=== PATIENT | female | born 1965 | race American Indian/Alaskan Native ===

== ENCOUNTER 2018-08-28 14:13 | Emergency (ER) | payer OTHER ==
[2018-08-28 14:25] VITALS: BP 118/76; PULSE 70; TEMP 98.2; BMI 33.6
[2018-08-28] MEDS ORDERED: ACETAMINOPHEN 325 MG TABLET (FP) PO ONE (14:48)
--- NOTE | 2018-08-28 14:49 | PDOC ---
History of Present Illness - General Chief Complaint: Injury Stated Complaint: FALL DOWN STEPS INJURY TO LOWER LEGS ABRASIONS Time Seen by Provider: 08/28/18 14:19 History Source: Patient Exam Limitations: No Limitations - History of Present Illness Initial Comments: 08/28/18 14:44 53y F no significant pmhx presents s/o fall. Pt was ambulated barefoot down her front stairs and slipped on a bunch of wet magnolia leaves, with her L leg sliding down first with her R leg tralining. Pt endorses pain to her R leg and scraps to the R jimenez and L calf. Pt denies head injury, loc, neck pain, back pain, other extermity pain. pt was in her [facility] prior to falling without complaints of feeling lightheaded, cp, palpitations, n/v, abd pain, back pain, head ache, numbenss/tingling/weakness. After her fall, she endorses feeling brielf episodes of palpitations, lightheaded, blurry vision lasting for a minute or two before resolving. Pt endorses feeling occaional similar symptoms after falling that lasts for a few seconds. Denies any symptoms currently. Last tetanus during previous ED visit for a cut in 2016. Past History - Past Medical History Allergies/Adverse Reactions: Allergies Allergy/AdvReac Type Severity Reaction Status Date / Time codeine [Codeine] Allergy Intermediate Nausea Verified 08/28/18 14:16 Penicillins Allergy Intermediate Verified 08/28/18 14:16 Home Medications: Ambulatory Orders Omeprazole [Prilosec] 20 mg PO DAILY 12/05/14 COPD: No GI Disorders: Yes (ACID REFLUX) Kidney Stones: Yes - Surgical History Appendectomy: Yes Cholecystectomy: Yes - Immunization History Immunization Up to Date: No - Suicide/Smoking/Psychosocial Hx Smoking Status: No Smoking History: Never smoked Have you smoked in the past 12 months: No Number of Cigarettes Smoked Daily: 0 If you are a former smoker, when did you quit?: 30 YRS AGO Information on smoking cessation initiated: No Hx Alcohol Use: Yes (SOCIAL) Drug/Substance Use Hx: No Substance Use Type: None Review of Systems - Review of Systems Able to Perform ROS?: Yes Comments:: 08/28/18 15:04 Constitutional - no reported Fever, Chills, HEENT: no reported vision changes, sore throat Respiratory: no reported cough, sob, hemoptysis Cardiac: +palpitations, light headedness, no reported chest pain, leg swelling Abd/GI: no reported abd pain, nausea, vomiting : no reported dysuria, frequency, discharge Musculskelatal - RLE pain, no reported back pain, joint swelling skin - +abrasions, no reported bruising, erythema, rash neurological: no reported headache, numbness, focal weakness, tingling, ataxia , hematologic: no reported easy bruising, easy bleeding *Physical Exam - Vital Signs Last Vital Signs Temp Pulse Resp BP Pulse Ox 98.2 F 70 16 118/76 98 08/28/18 14:15 08/28/18 14:15 08/28/18 14:15 08/28/18 14:15 08/28/18 14:15 - Physical Exam Comments: 08/28/18 15:06 GENERAL: The patient is awake, alert, and fully oriented, Nontoxic - in no acute distress. HEAD: Normocephalic, atraumatic. EYES: extraocular movements intact, sclera anicteric, conjunctiva clear. ENT: Normal voice, Moist mucous membranes. NECK: Normal range of motion, supple, NO midline bony or soft tissue ttp to cervical/thoracic/lumbar spine LUNGS: Breath sounds equal, clear to auscultation bilaterally. No wheezes, no rhonchi, no rales. HEART: Regular rate and rhythm, normal S1 and S2 without murmur, rub or gallop. ABDOMEN: Soft, nontender, No guarding, no rebound. No CVA tenderness EXTREMITIES: contusion to the R anterior knee without significant focal bony ttp , normal ROM of R knee/R hip. abrasion noted to anterior R jimenez with mild ttp on anterior mid tibia, mild ttp to medial mallelous of R ankle. Normal ROM of L hip, ankle, knee. abrasion on posterior L calf. radial pulses symmetric b/l, sensation intact b/l. normal ROM of UE at shoulder/elbow/wrists without focal bony ttp or limitations of ROM. NEUROLOGICAL: No facial assymetry, Normal speech, moving all 4 ext spontaneously and symmetrically PSYCH: Normal mood, normal affect. SKIN: Warm, Dry, normal turgor, Heart Score/ECG Review - ECG Impressions Comment:: 08/28/18 15:41 Twelve-lead EKG was performed and reviewed by me. There is normal sinus rhythm Rate of [address] changs suggestive of acute ischemia Medical Decision Making - Medical Decision Making 08/28/18 15:09 53y F presents sp mechanical fall with multiple abrasions/contusions with mild ttp to RLE/ankle w/o head injury/syncope bacitracin to abrasions xray to r/o fx on R tibfib/ankle tylenol for pain tetanus updated 3 yrs ago 08/28/18 15:58 xrays neg for fx on my read will dc pt with pmd fu return precautions were discussed I discussed the physical exam findings, ancillary test results and final diagnoses with the patient. I answered all of the patient's questions. The patient was satisfied with the care received and felt comfortable with the discharge plan and treatment plan. The patient will call their primary care physician within 24 hours to arrange follow-up and will return to the Emergency Department with any new, persistent or worsening symptoms. *DC/Admit/Observation/Transfer Diagnosis at time of Disposition: Fall (on) (from) other stairs and steps, initial encounter, Abrasion, leg w/o infection Contusion of knee, right Qualifiers: Encounter type: initial encounter Qualified Code(s): S80.01XA - Contusion of right knee, initial encounter Calf abrasion Qualifiers: Encounter type: initial encounter Laterality: left Qualified Code(s): S80.812A - Abrasion, left lower leg, initial encounter - Discharge Dispostion Disposition: HOME Condition at time of disposition: Improved Decision to Admit order: No - Referrals Referrals: Court Mariscal [Primary Care Provider] - - Patient Instructions Printed Discharge Instructions: DI for Abrasion Additional Instructions: Take tylenol for pain/soreness. Apply bacitrcin to your abrasions twice daily. If there is any redness/swelling/ purulent discharge there may be an infection for which you should return to the emergency department or see your primary care doctor immediately. Print Language: DJIBOUTIAN - Post Discharge Activity
[2018-08-28] MEDS ORDERED: ACETAMINOPHEN 325 MG TABLET (FP) ONE (14:51)
--- NOTE | 2018-08-29 08:25 | EKG ---
Test Reason : Blood Pressure : / mmHG Vent. Rate : 056 BPM Atrial Rate : 056 BPM P-R Int : 150 ms QRS Dur : 084 ms QT Int : 408 ms P-R-T Axes : 033 010 038 degrees QTc Int : 393 ms POOR DATA QUALITY, INTERPRETATION MAY BE ADVERSELY AFFECTED SINUS BRADYCARDIA WITH SINUS ARRHYTHMIA OTHERWISE NORMAL ECG WHEN COMPARED WITH ECG OF 10-FEB-2012 10:59, NO SIGNIFICANT CHANGE WAS FOUND Confirmed by ZAKIYA TIJERINA, EHSAN ([id number]) on 08/29/2018 8:24:54 AM Referred By: HANSEL Confirmed By:EHSAN SIGALA MD
== END 2018-08-28 16:11 | disposition home or self-care (01) ==
LOC: FER 14:13
DX: S80.01XA Contusion of right knee, initial encounter (principal); S80.812A Abrasion, left lower leg, initial encounter; W10.9XXA Fall (on) (from) unspecified stairs and steps, initial encounter; Y93.89 Activity, other specified; Y92.89 Other specified places as the place of occurrence of the external cause; Z87.891 Personal history of nicotine dependence; K21.9 Gastro-esophageal reflux disease without esophagitis
CPT/HCPCS: 73590-TC-RT-FY; 73610-TC-RT-FY; 93005; 99282-25

== ENCOUNTER 2018-11-18 08:00 | Day surgery (SDC) | payer OTHER | END 2018-11-18 13:51 | disposition home or self-care (01) | LOC: JASU-ENDO 08:00 ==

== ENCOUNTER 2019-10-29 15:09 | Emergency (ER) | payer OTHER ==
[2019-10-29 15:30] VITALS: BMI 33.6
[2019-10-29] MEDS ORDERED: FAMOTIDINE 20 MG TABLET PO ONE (15:49)
[2019-10-29] MEDS ORDERED: MAG HYDROX/AL HYDROX/SIMETH 30 ML UNIT-DOSE CUP PO ONE (15:50)
[2019-10-29] MEDS ORDERED: LIDOCAINE VISCOUS 2% ORAL/TOP 20 ML UNIT-DOSE CUP MM ONE (15:50)
[2019-10-29 16:22] LABS: BASO % 1.4 % (0-2.0); EOS % 5.1 % (0-4.5); HEMOGLOBIN 14.8 GM/dl (10.7-15.3); LYMPH % 35.8 % (8-40); MCH 31.4 pg (25.7-33.7); MCHC 34.4 g/dl (32.0-36.0); MEAN CELL VOLUME 91.3 fl (80-96); MEAN PLT VOLUME 8.1 fl (7.5-11.1); MONO % 8.6 % (3.8-10.2); NEUT % 49.1 % (42.8-82.8); PLATELET COUNT 299 K/MM3 (134-434); RBC 4.71 M/mm3 (3.60-5.2); RDW 13.1 % (11.6-15.6); WHITE BLOOD COUNT 4.6 K/mm3 (4.0-10.8)
[2019-10-29 16:35] LABS: BILIRUBIN,TOTAL 0.9 mg/dl (0.2-1); CALCIUM 8.9 mg/dl (8.5-10); CREATININE 0.7 mg/dl (0.55-1.3); POTASSIUM 4.2 mmol/L (3.5-5.1); TOT PROT 6.9 g/dl (6.4-8.2)
[2019-10-29 17:00] LABS: EPITHELIAL CELLS FEW /hpf
--- NOTE | 2019-10-29 17:59 | PDOC ---
Documentation entered by Saima Oden SCRIBE, acting as scribe for Dyan Fung MD. Dyan Fung MD: This documentation has been prepared by the kassieibeAkshat Lincy, SCRIBE, under my direction and personally reviewed by me in its entirety. I confirm that the documentation accurately reflects all work, treatment, procedures, and medical decision making performed by me. History of Present Illness - General Chief Complaint: Pain Stated Complaint: RT UPPER ABD PAIN Time Seen by Provider: 10/29/19 15:16 History Source: Patient Exam Limitations: No Limitations - History of Present Illness Initial Comments: 10/29/19 15:56 The patient is a 54-year-old female with a past medical history significant for GERD Pantoprazole 40mg/daily) and kidney stones who present to the emergency department with abdominal pain. The patient reports she woke up with an epigastric pain that radiates to the left upper quadrant. The patient reports the pain is throbbing and squeezing in quality that is aggravated with palpation and deep breathing. Currently in the ED the patient reports she feels uncomfortable and bloated. The patient reports additional concern of I might have a UTI associated symptoms of dysuria, urinary urgency, urinary frequency and backaches. The patient reports speaking with Dr. Elpidio Mariscal, who referred the patient to the ER. Denies nausea, vomiting, shortness of breath. Denies cardiac problems. Denies prior similar pain. The patient reports she had an unremarkable endoscopy and colonoscopy last year. Allergies: Codeine, penicillins and latex. Surgical history: Appendectomy and cholecystectomy. PCP: Dr. Elpidio Mariscal. Past History - Medical History Allergies/Adverse Reactions: Allergies Allergy/AdvReac Type Severity Reaction Status Date / Time codeine [Codeine] Allergy Intermediate Nausea Verified 10/29/19 15:21 Penicillins Allergy Intermediate Verified 10/29/19 15:21 latex Allergy Verified 10/29/19 15:22 Home Medications: Ambulatory Orders Pantoprazole Sodium 40 mg PO DAILY 10/29/19 COPD: No GI Disorders: Yes (ACID REFLUX) Kidney Stones: Yes - Surgical History Appendectomy: Yes Cholecystectomy: Yes - Immunization History Immunization Up to Date: No - Psycho-Social/Smoking History Smoking Status: No Smoking History: Never smoked Have you smoked in the past 12 months: No Number of Cigarettes Smoked Daily: 0 If you are a former smoker, when did you quit?: 30 YRS AGO *Physical Exam - Physical Exam 10/29/19 16:00 GENERAL: Awake, alert, and fully oriented, in no acute distress HEAD: No signs of trauma EYES: PERRLA, EOMI, sclera anicteric, conjunctiva clear ENT: Auricles normal inspection, hearing grossly normal, nares patent. Moist mucosa NECK: Normal ROM, supple, no lymphadenopathy, JVD, or masses LUNGS: Breath sounds equal, clear to auscultation bilaterally. No wheezes, and no crackles HEART: Regular rate and rhythm, normal S1 and S2, no murmurs, rubs or gallops ABDOMEN: +epigastric tenderness, left upper quadrant pain. No rebound or guarding. No CVA tenderness. EXTREMITIES: Normal range of motion, no edema. No erythema or tenderness. NEUROLOGICAL: Alert and oriented x3. Normal gait. SKIN: Warm, Dry, normal turgor, no rashes or lesions noted. ED Treatment Course - LABORATORY CBC & Chemistry Diagram: 10/29/19 16:00 10/29/19 15:52 Discharge - Discharge Information Problems reviewed: Yes Clinical Impression/Diagnosis: Abdominal pain Condition: Improved Disposition: HOME - Admission No - Follow up/Referral Referrals: Court Mariscal [Primary Care Provider] - Agnel Marques MD [Staff Physician] - Carlos Thompson MD [Staff Physician] - - Patient Discharge Instructions Patient Printed Discharge Instructions: Acute Abdominal Pain Additional Instructions: Your CAT scan today shows that you have a cyst on your liver and additionally have a left ovarian cyst. Both of these findings need to be followed up. You should follow-up with your winch runner as well for future endoscopy due to evaluation of your abdominal pain. Please call Dr. Marques or Dr. Graham to schedule follow-up. You may also follow-up with a lockstitch binder if you do not have 1 you can follow-up with Dr. Ladonna Schmidt please see referral information and call to schedule. Return for any vomiting fevers chills worsening symptoms shortness of breath or any concerns you may have your labs today are unremarkable as is your urine negative for infection - Post Discharge Activity
[2019-10-29 19:17] VITALS: BP 117/71; PULSE 56; TEMP 97
--- NOTE | 2019-11-01 10:28 | EKG ---
Test Reason : Blood Pressure : / mmHG Vent. Rate : 051 BPM Atrial Rate : 051 BPM P-R Int : 154 ms QRS Dur : 088 ms QT Int : 448 ms P-R-T Axes : 029 013 035 degrees QTc Int : 412 ms SINUS BRADYCARDIA OTHERWISE NORMAL ECG WHEN COMPARED WITH ECG OF 28-AUG-2018 15:00, NO SIGNIFICANT CHANGE WAS FOUND Confirmed by Emile Leone ([id number]) on 11/01/2019 10:28:31 AM Referred By: MD MEDEROS Confirmed By:Emile Leone
== END 2019-10-29 19:31 | disposition home or self-care (01) ==
LOC: FER 15:09 → SUPCPDRO 15:09 → FER 19:31
DX: R10.13 Epigastric pain (principal)
CPT/HCPCS: 36415; 71046-TC-FY; 74177-TC; 80053; 81003; 81015; 83690; 84484; 85025; 87077; 87086; 87186; 93005; 93010; 99285-25

== ENCOUNTER 2020-03-27 16:45 | Emergency (ER) | payer OTHER | END 2020-03-27 17:04 | disposition home or self-care (01) | LOC: JVIRT 16:45 | DX: Z03.818 Encounter for observation for suspected exposure to other biological agents ruled out (principal); J06.9 Acute upper respiratory infection, unspecified | CPT/HCPCS: C9803; G2012-GT; U0003 ==

== ENCOUNTER 2020-04-18 12:05 | Emergency (ER) | payer OTHER | END 2020-04-18 12:47 | disposition home or self-care (01) | LOC: JVIRT 12:05 | DX: R05 Cough (principal); M79.10 Myalgia, unspecified site; Z20.828 Contact with and (suspected) exposure to other viral communicable diseases | CPT/HCPCS: C9803; G2012-GT; U0003 ==

== ENCOUNTER 2020-04-28 12:52 | Emergency (ER) | payer OTHER | END 2020-04-28 13:29 | disposition home or self-care (01) | LOC: JVIRT 12:52 | DX: Z20.828 Contact with and (suspected) exposure to other viral communicable diseases (principal) | CPT/HCPCS: C9803; Q3014-GT; U0003 ==

== ENCOUNTER 2020-07-21 11:21 | Emergency (ER) | payer OTHER | END 2020-07-21 11:23 | disposition home or self-care (01) | LOC: JVIRT 11:21 | DX: Z20.822 Contact with and (suspected) exposure to COVID-19 (principal) | CPT/HCPCS: C9803; G2251-GT; Q3014-GT; U0003 ==

== ENCOUNTER 2020-10-16 05:47 | Emergency (ER) | payer OTHER ==
[2020-10-16 05:58] VITALS: BP 128/91; PULSE 64; TEMP 97.7; BMI 34.7
== END 2020-10-16 09:09 | disposition home or self-care (01) ==
LOC: FER 05:47
DX: M25.562 Pain in left knee (principal)
CPT/HCPCS: 93971-TC; 99284-25

== ENCOUNTER 2020-12-27 11:09 | Emergency (ER) | payer OTHER ==
[2020-12-30 05:54] LABS: SARS-CoV-2 NAA NOT DETECTED
== END 2020-12-27 11:53 | disposition home or self-care (01) ==
LOC: JVIRT 11:09
DX: Z11.52 Encounter for screening for COVID-19 (principal)
CPT/HCPCS: C9803; Q3014-GT; U0003; U0005

== ENCOUNTER 2020-12-31 09:11 | Emergency (ER) | payer OTHER ==
[2021-01-02 14:27] LABS: SARS-CoV-2 NAA DETECTED
== END 2020-12-31 10:38 | disposition home or self-care (01) ==
LOC: JVIRT 09:11
DX: Z20.822 Contact with and (suspected) exposure to COVID-19 (principal)
CPT/HCPCS: C9803; Q3014-GT; U0003; U0005

== ENCOUNTER 2021-01-03 10:37 | Emergency (ER) | payer OTHER ==
[2021-01-03 10:54] VITALS: TEMP 97.6; BMI 34.7
[2021-01-03] MEDS ORDERED: CASIRIVIMAB/IMDEVIMAB 10 ML in SODIUM CHLORIDE 100 ML IVPB ONE (11:42)
[2021-01-03 13:47] VITALS: PULSE 85
[2021-01-03 13:48] VITALS: BP 127/92
== END 2021-01-03 14:03 | disposition home or self-care (01) ==
LOC: JER 10:37
DX: U07.1 COVID-19 (principal)
CPT/HCPCS: 71046-TC-FY; 99284-25; M0240; Q0240

== ENCOUNTER 2022-10-18 14:09 | Emergency (ER) | payer OTHER ==
[2022-10-18 14:35] VITALS: BP 128/87; PULSE 81; RESP 18; TEMP 98.2; BMI 35.6
[2022-10-18] MEDS ORDERED: IBUPROFEN 400 MG TABLET (FP) PO ONE ×2 (15:51→16:47)
[2022-10-18] MEDS ORDERED: ACETAMINOPHEN 1000 MG/100 ML BAG IVPB ONE (15:51)
[2022-10-18 16:04] LABS: EPI CELLS 12 /uL (0-25.1); HYALINE CASTS 0 /uL (0-3.1); URINE APPEARANCE CLEAR; URINE BACTERIA 66 /uL (0-1359); URINE BILIRUBIN NEGATIVE (NEGATIVE); URINE COLOR YELLOW; URINE GLUCOSE (UA) NEGATIVE (NEGATIVE); URINE KETONE NEGATIVE (NEGATIVE); URINE LEUK ESTERASE 1+ (NEGATIVE); URINE NITRITE NEGATIVE (NEGATIVE); URINE PROTEIN NEGATIVE (NEGATIVE); URINE RBC 19 /uL (0-23.9); URINE UROBILINOGEN 0.2 mg/dL (0.2-1.0); URINE WBC 24 /uL (0-25.8)
[2022-10-18] MEDS ORDERED: ACETAMINOPHEN INJECTION 100 ML IVPB ONE (16:47)
[2022-10-18 17:35] LABS: BASO % 0.6 % (0-2.0); EOS % 3.1 % (0-4.5); HEMATOCRIT 46.3 % (32.4-45.2); HEMOGLOBIN 15.6 GM/dL (10.7-15.3); LYMPH % 20.3 % (8-40); MCH 30.8 pg (25.7-33.7); MCHC 33.8 g/dl (32.0-36.0); MEAN CELL VOLUME 91.4 fl (80-96); MEAN PLT VOLUME 7.9 fl (7.5-11.1); PLATELET COUNT 338 10^3/uL (134-434); RBC 5.06 M/mm3 (3.60-5.2); RDW 13.3 % (11.6-15.6); WHITE BLOOD COUNT 7.1 K/mm3 (4.0-10.0)
[2022-10-18 17:54] LABS: POTASSIUM 4.3 mmol/L (3.5-5.1)
[2022-10-18 17:56] LABS: ALBUMIN 4.1 g/dl (3.4-5.0)
[2022-10-18 17:57] LABS: BLOOD UREA NITROGEN 15.8 mg/dL (7-18)
[2022-10-18 17:59] LABS: CREATININE 0.9 mg/dL (0.55-1.3)
[2022-10-18 18:01] LABS: BILIRUBIN,TOTAL 0.4 mg/dL (0.2-1); TOT PROT 8.2 g/dl (6.4-8.2)
[2022-10-18 18:36] LABS: ERYTHROCYTE SEDIMENTATION RATE 20 mm/hr (0-30)
[2022-10-18] MEDS ORDERED: CIPROFLOXACIN 500 MG TABLET (RESTRICTED TO ID) PO ONE (20:38)
[2022-10-18] MEDS ORDERED: metroNIDAZOLE 500 MG TABLET PO ONE (20:39)
[2022-10-18] MEDS ORDERED: metroNIDAZOLE 250 MG TABLET ONE (20:52)
== END 2022-10-18 21:23 | disposition home or self-care (01) ==
LOC: JER 14:09
PROC: 3E033NZ Introduction of Analgesics, Hypnotics, Sedatives into Peripheral Vein, Percutaneous Approach (ICD-10-PCS; principal; 2022-10-18)
DX: K57.92 Diverticulitis of intestine, part unspecified, without perforation or abscess without bleeding (principal); R10.30 Lower abdominal pain, unspecified; M54.9 Dorsalgia, unspecified; K59.00 Constipation, unspecified; R63.0 Anorexia
CPT/HCPCS: 36415; 74177-TC; 80053; 81003; 83605; 83690; 85025; 85651; 86140; 87086; 99285-25; Q9967